=== PATIENT | female | born 1970 | race Two or more races ===

== ENCOUNTER 2024-02-08 23:10 | Emergency (ER) | payer OTHER ==
[~2024-02-08] VITALS: Ht 167.6 cm; Wt 80.7 kg
[2024-02-09] MEDS: NITROFURANTOIN/MONOHYDRATE MACROCRYSTALS 100 MG CAPSULE PO ONE (00:30)
[2024-02-09 00:44] LABS: APPEARANCE,URINE TURBID (CLEAR); BILIRUBIN,URINE 1+ (NEGATIVE); BLOOD, URINE 3+ Ery/uL (NEGATIVE); COLOR,URINE BROWN (YELLOW); KETONES,URINE TRACE mg/dL (NEGATIVE); LEUKOCYTE ESTERASE ,URINE 2+ (NEGATIVE); NITRITE, URINE POSITIVE (NEGATIVE); PH,URINE 6.5 (5.0-8.0); PROTEIN,URINE 3+ mg/dl (NEGATIVE); UGLUCOSE TRACE mg/dL (NEGATIVE)
[2024-02-09] MEDS ORDERED: NITROFURANTOIN/MONOHYDRATE MACROCRYSTALS 100 MG CAPSULE ONE (00:44)
[2024-02-09] MEDS ORDERED: NITR100C6 PO (01:07)
[2024-02-09 01:43] VITALS: BP 137/81; O2SAT 99
[2024-02-09 02:07] LABS: ADD URINE CULTURE YES; BACTERIA,URINE 1+ /HPF (None Seen); MUCUS,URINE Many /LPF (None Seen); RBC,URINE TOO NUMEROUS TO COUN /HPF (0-2); WBC,URINE 21-50 /HPF (0-3)
== END 2024-02-09 01:44 | disposition home or self-care (01) ==
LOC: ER 23:54
DX: N39.0 Urinary tract infection, site not specified (principal); I10 Essential (primary) hypertension; E11.9 Type 2 diabetes mellitus without complications
CPT/HCPCS: 81001; 87086-TC

== ENCOUNTER 2024-03-28 18:00 | Emergency (ER) | payer OTHER ==
[~2024-03-28] VITALS: Ht 167.6 cm; Wt 80.7 kg
[~2024-03-28 18:00] MED LIST: NITR100C6 PO
[2024-03-28 18:10] VITALS: TEMP 97.9
[2024-03-28] MEDS ORDERED: diphenhydrAMINE HCL 50 MG/ML VIAL ONE (18:29)
[2024-03-28] MEDS ORDERED: FAMOTIDINE/PF INJ 20 MG/2 ML VIAL IV ONE (18:30)
[2024-03-28] MEDS ORDERED: methylPREDNISolone SOD SUCC 125 MG/2ML VIAL ONE (18:30)
[2024-03-28] MEDS: methylPREDNISolone SOD SUCC 125 MG/2ML VIAL IV ONE (18:35)
[2024-03-28] MEDS: FAMOTIDINE/PF INJ 20 MG/2 ML VIAL IV ONE (18:36)
[2024-03-28] MEDS: diphenhydrAMINE HCL 50 MG/ML VIAL IV ONE (18:38)
[2024-03-28] MEDS ORDERED: EPIN0.3P3 IM (20:43)
[2024-03-28] MEDS ORDERED: PRED20TA PO (20:43)
[2024-03-28] MEDS ORDERED: HYDR-500 PO (20:43)
[2024-03-28 21:02] VITALS: BP 130/81; O2SAT 100
== END 2024-03-28 21:00 | disposition home or self-care (01) ==
LOC: ER 18:04
DX: T78.49XA Other allergy, initial encounter (principal); I10 Essential (primary) hypertension; E11.9 Type 2 diabetes mellitus without complications; Z79.52 Long term (current) use of systemic steroids; X58.XXXA Exposure to other specified factors, initial encounter
CPT/HCPCS: 99284; 96374; 96375; J1200; J3490; J2919

== ENCOUNTER 2024-05-30 16:53 | Emergency (ER) | payer OTHER ==
[~2024-05-30] VITALS: Ht 162.6 cm; Wt 81.6 kg
[~2024-05-30 16:53] MED LIST changes: +EPIN0.3P3 IM; +HYDR-500 PO; +PRED20TA PO
[2024-05-30 17:14] VITALS: BP 184/103; TEMP 98.1; O2SAT 99
[2024-05-30 18:16] LABS: PREGNANCY TEST URINE QUAL NEGATIVE (NEGATIVE)
[2024-05-30] MEDS ORDERED: CYCLOBENZAPRINE 10 MG TABLET ONE (18:24)
[2024-05-30] MEDS ORDERED: LIDOCAINE 5% (PATCH) 1 EA PATCH TP ONE (18:24)
[2024-05-30] MEDS ORDERED: KETOROLAC TROMETHAMINE 15 MG/ML VIAL ONE (18:24)
[2024-05-30] MEDS: KETOROLAC TROMETHAMINE 15 MG/ML VIAL IM ONE (18:35)
[2024-05-30] MEDS: LIDOCAINE 5% (PATCH) 1 EA PATCH TP SCH (18:36)
[2024-05-30] MEDS: CYCLOBENZAPRINE 10 MG TABLET PO ONE (18:36)
[2024-05-30] MEDS ORDERED: KETO10TA2 PO (19:19)
[2024-05-30] MEDS ORDERED: LIDO30AD10 TP (19:19)
[2024-05-30] MEDS ORDERED: CYCL10TA9 PO (19:19)
[2024-05-31] MEDS ORDERED: NAPR-1009 PO (14:27)
== END 2024-05-30 19:55 | disposition home or self-care (01) ==
LOC: ER 16:58
DX: S29.012A Strain of muscle and tendon of back wall of thorax, initial encounter (principal); M54.6 Pain in thoracic spine; E11.9 Type 2 diabetes mellitus without complications; I10 Essential (primary) hypertension; Z79.52 Long term (current) use of systemic steroids; Z60.2 Problems related to living alone; X50.9XXA Other and unspecified overexertion or strenuous movements or postures, initial encounter; Y93.42 Activity, yoga; Y92.89 Other specified places as the place of occurrence of the external cause; Y99.8 Other external cause status
CPT/HCPCS: 99284; 96372; 72070; 84703; J1885